=== PATIENT | female | born 1980 | race Caucasian/White ===

== ENCOUNTER 2018-06-26 04:50 | Inpatient (IN) | payer OTHER ==
[~2018-06-26] VITALS: Ht 154.9 cm; Wt 73.9 kg
[2018-06-26 05:24] VITALS: BMI 22.0
[2018-06-26 05:35] VITALS: BP 140/81; PULSE 66; RESP 18
[2018-06-26] MEDS ORDERED: ONDANSETRON 4 MG INJ IV PRN (06:00)
[2018-06-26 07:22] VITALS: BP 133/76; PULSE 68; RESP 19
[2018-06-26] MEDS: morphine 2 MG INJ IV PRN ×3 (07:27→22:37)
[2018-06-26] MEDS: DEXTROSE 5%-0.9% NACL 1,000 ML IV SCH (07:27)
[2018-06-26] MEDS: PANTOPRAZOLE 40 MG INJ IV SCH (07:27)
[2018-06-26] MEDS: CEFTRIAXONE 1 GM/50 ML (PMX) 50 ML IVPB SCH (07:31)
[2018-06-26] MEDS ORDERED: POTASSIUM CHLORIDE (SR) 20 MEQ TAB PO STA (09:21)
[2018-06-26 12:30] VITALS: BP 135/75; PULSE 74; RESP 18
[2018-06-26] MEDS: ACETAMINOPHEN 325 MG TAB PO PRN ×2 (12:59→20:50)
--- NOTE | 2018-06-26 13:01 | CONS ---
Assessment/Plan Assessment/Plan Hospital Course (Demo Recall) 1. Acute cholecystitis: Ultrasound: gallstones and sludge with thickening of the gallbladder measuring 5 mm: Urine negative -N.p.o. -Antibiotics -IV fluids 2. abdominal pain -Pain management 3. Elevated indirect bilirubin -Trend 4. Leukocytosis: -As above -Trend 5. Hypochromic anemia anemia: -Monitor and transfuse as needed 6. Mild hyponatremia and hypokalemia -Optimize electrolytes Thank you. Patient seen and examined in collaboration with Dr. Gerson Mayo. Consultation Date/Type/Reason Admit Date/Time Jun 26, 2018 at 04:50 Date of Consultation: Jun 26, 2018 Type of Consult Surgical Reason for Consultation Abdominal pain, cholecystitis Requesting Provider: MAYITO ASH MD Date/Time of Note DATE: 06/26/18 TIME: 12:46 Hx of Present Illness Crystal Galloway is a 38-year-old woman with past medical history of miscarriage and surgical history of who presents to outside hospital with complaints of abdominal pain. Abdominal pain is primarily in the right upper quadrant without radiation strong and persistent in nature. Associated symptoms include chills as well as nausea and vomiting, nonbloody emesis. She denies fevers, labored breathing, congested cough, shortness of breath, diarrhea, dysuria, change in bowel or bladder habits, change in skin or scleral color. Ultrasound of the abdomen performed in outside hospital shows gallstones and sludge with thickening of the gallbladder measuring 5 mm. laboratory findings significant for leukocytosis well as elevated indirect bilirubin and AST. General surgery was asked to evaluate. 12 point review of systems was performed and is negative except for stated in HPI. Past Medical History As above Medications Current Medications Pantoprazole (Protonix Iv) 40 mg DAILY@06 IV Last administered on 06/26/18at 07:27; Admin Dose 40 MG; Start 06/26/18 at 07:00 Acetaminophen (Tylenol Tab) 650 mg Q6H PRN PO MILD PAIN(1-3)OR ELEVATED TEMP; Start 06/26/18 at 06:00 Ondansetron HCl (Zofran Inj) 4 mg Q6H PRN IV NAUSEA AND/OR VOMITING; Start 06/26/18 at 06:00 Ceftriaxone Sodium 50 ml @ 100 mls/hr Q24H IVPB Last administered on 06/26/18at 07:31; Admin Dose 100 MLS/HR; Start 06/26/18 at 07:00 Morphine Sulfate (morphine) 2 mg Q4H PRN IV SEVERE PAIN LEVEL 7-10 Last administered on 06/26/18at 07:27; Admin Dose 2 MG; Start 06/26/18 at 06:00 Dextrose/Sodium Chloride 1,000 ml @ 75 mls/hr [id number] IV Last administered on 06/26/18at 07:27; Admin Dose 75 MLS/HR; Start 06/26/18 at 07:00 Allergies: Coded Allergies: No Known Allergy (Unverified , 06/26/18) Past Surgical History As above Family History Significant Family History: no pertinent family hx Social History Alcohol Use: none Smoking Status: Never smoker Exam/Review of Systems Exam Vitals Vital Signs Date Temp Pulse Resp B/P (MAP) Pulse Ox O2 O2 Flow FiO2 Time Delivery Rate 06/26/18 99.4 74 18 135/75 98 12:30 (95) 06/26/18 Room Air 05:35 Constitutional: alert, oriented Psych: anxiety Head: normocephalic, atraumatic Eyes: nl conjunctiva, EOMI, nl lids, nl sclera ENMT: nl external ears & nose, nl lips & teeth, mucosa pink and moist Neck: supple, non-tender; No jvd Respiratory: normal air movement; No labored breathing Cardiovascular: regular rate and rhythm, nl pulses; No edema Gastrointestinal: soft, distended (mod), tender, other (Positive Martell's by palpation) Genitourinary - Female: nl external genitalia Musculoskeletal: nl extremities to inspection, nl gait and stance Extremities: normal pulses Neurological: nl mental status, nl speech, nl strength Skin: nl turgor; No rash or lesions Lymph: nl lymph nodes Results Result Diagram: 06/26/1837 06/26/1837 Results 24hrs Laboratory Tests Test 06/26/18 07:37 White Blood Count 15.6 H Red Blood Count 4.26 Hemoglobin 11.2 L Hematocrit 35.3 L Mean Corpuscular Volume 82.9 Mean Corpuscular Hemoglobin 26.3 L Mean Corpuscular Hemoglobin Concent 31.7 L Red Cell Distribution Width 13.7 Platelet Count 390 Mean Platelet Volume 9.8 Immature Granulocytes % 0.500 H Neutrophils % 89.5 H Lymphocytes % 3.3 L Monocytes % 6.5 Eosinophils % 0.0 Basophils % 0.2 Nucleated Red Blood Cells % 0.0 Immature Granulocytes # 0.080 H Neutrophils # 14.0 H Lymphocytes # 0.5 L Monocytes # 1.0 H Eosinophils # 0.0 Basophils # 0.0 Nucleated Red Blood Cells # 0.0 Sodium Level 134 L Potassium Level 3.3 L Chloride Level 103 Carbon Dioxide Level 22 Anion Gap 9 Blood Urea Nitrogen 7 Creatinine 0.38 L Est Glomerular Filtrat Rate mL/min > 60 Glucose Level 140 Calcium Level 8.7 Total Bilirubin 1.3 Direct Bilirubin 0.00 Indirect Bilirubin 1.3 H Aspartate Amino Transf (AST/SGOT) 78 H Alanine Aminotransferase (ALT/SGPT) 62 Alkaline Phosphatase 89 Total Protein 7.5 Albumin 4.1 Globulin 3.40 H Albumin/Globulin Ratio 1.20 Medications Medication Current Medications Pantoprazole (Protonix Iv) 40 mg DAILY@06 IV Last administered on 06/26/18 07:27; Admin Dose 40 MG; Start 06/26/18 at 07:00 Acetaminophen (Tylenol Tab) 650 mg Q6H PRN PO MILD PAIN(1-3)OR ELEVATED TEMP; Start 06/26/18 at 06:00 Ondansetron HCl (Zofran Inj) 4 mg Q6H PRN IV NAUSEA AND/OR VOMITING; Start 06/26/18 at 06:00 Ceftriaxone Sodium 50 ml @ 100 mls/hr Q24H IVPB Last administered on 06/26/18 07:31; Admin Dose 100 MLS/HR; Start 06/26/18 at 07:00 Morphine Sulfate (morphine) 2 mg Q4H PRN IV SEVERE PAIN LEVEL 7-10 Last administered on 06/26/18 07:27; Admin Dose 2 MG; Start 06/26/18 at 06:00 Dextrose/Sodium Chloride 1,000 ml @ 75 mls/hr [id number] IV Last administered on 06/26/18 07:27; Admin Dose 75 MLS/HR; Start 06/26/18 at 07:00 TERENCE DOWNS NP Jun 26, 2018 13:01
--- NOTE | 2018-06-26 14:25 | QN ---
Documentation Comment seen and examined MAYITO ASH MD Jun 26, 2018 14:25
--- NOTE | 2018-06-26 14:37 | PREAC ---
Date/Time of Note Date/Time of Note DATE: 06/26/18 TIME: 14:36 Anesthesia Eval and Record Evaluation Time Pre-Procedure Interview DATE: 06/26/18 TIME: 14:36 Age 38 Sex female NPO: 8 hrs Preoperative diagnosis acute cholecystitis Planned procedure laparoscopic cholecystectomy Past Medical History Past Medical History: None Surgery & Anesthesia Issues No known issue Meds Anticoagulation: No Beta Darren within 24 hr: No Reason Beta Darren not given: Pt. not on B-Darren Current Medications Pantoprazole (Protonix Iv) 40 mg DAILY@06 IV Last administered on 06/26/18at 07:27; Admin Dose 40 MG; Start 06/26/18 at 07:00 Acetaminophen (Tylenol Tab) 650 mg Q6H PRN PO MILD PAIN(1-3)OR ELEVATED TEMP Last administered on 06/26/18 12:59; Admin Dose 650 MG; Start 06/26/18 at 06:00 Ondansetron HCl (Zofran Inj) 4 mg Q6H PRN IV NAUSEA AND/OR VOMITING; Start 06/26/18 at 06:00 Ceftriaxone Sodium 50 ml @ 100 mls/hr Q24H IVPB Last administered on 06/26/18 07:31; Admin Dose 100 MLS/HR; Start 06/26/18 at 07:00 Morphine Sulfate (morphine) 2 mg Q4H PRN IV SEVERE PAIN LEVEL 7-10 Last administered on 06/26/18 12:59; Admin Dose 2 MG; Start 06/26/18 at 06:00 Dextrose/Sodium Chloride 1,000 ml @ 75 mls/hr [id number] IV Last administered on 06/26/18 07:27; Admin Dose 75 MLS/HR; Start 06/26/18 at 07:00 Metronidazole 100 ml @ 100 mls/hr Q8 IVPB ; Start 06/26/18 at 14:30 Meds reviewed: Yes Allergies Coded Allergies: No Known Allergy (Unverified , 06/26/18) Allergies Reviewed: Yes Labs/Studies Labs Reviewed: Reviewed by anesthesiologist Result Diagram: 06/26/1873606/26/18736 Laboratory Tests 06/26/18 07:37 test: Negative Pre-procedure Exam Last vitals Vital Signs Date Temp Pulse Resp B/P (MAP) Pulse Ox O2 O2 Flow FiO2 Time Delivery Rate 06/26/18 99.9 12:59 06/26/18 74 18 135/75 98 12:30 (95) 06/26/18 Room Air 05:35 Airway: Adequate mouth opening, Adequate thyromental dist Mallampati: Mallampati II Teeth: Normal Lung: Normal Heart: Normal ASA Physical Status ASA physical status: 2 Emergency: None Planned Anesthetic General/MAC: ETT Nerve block: TAP (bilateral) Planned Pain Management Single shot nerve block, Parenteral pain med Pre-operative Attestations Prior to commencing anesthesia and surgery, the patient was re-evaluated, there was verification of: *The patient's identity *The results of appropriate recent lab work and preoperative vital signs *The above evaluation not changing prior to induction *Anesthetic plan, risk benefits, alternative and complications discussed with patient/family; questions answered; patient/family understands, accepts and wishes to proceed. CHLOE CASTANON MD Jun 26, 2018 14:37
[2018-06-26] MEDS: metroNIDAZOLE 500 MG/NS (PMX) 100 ML IVPB SCH ×2 (14:51→22:29)
[2018-06-26 15:10] VITALS: BP 131/68; PULSE 82; RESP 19
--- NOTE | 2018-06-26 17:34 | HP ---
DATE OF ADMISSION: 06/26/2018 REASON FOR ADMISSION: Abdominal pain. HISTORY OF PRESENTING ILLNESS: This is a 38-year-old female with past medical history of , presented to [facility] complaining of abdominal pain since yesterday. According to the pat eliot, she went to drop off her son at school. After that, she started noticing right upper quadrant pain. She was also having episodes of nausea, vomiting and chills. According to the patient, she horn s had 2 more episodes in 03/2018. She never sought any medical attention. She went to [facility] for further evaluation. There, white count was 12.4, hemoglobin 10.8. UA was negative. The patient had abdominal ultrasound that showed gallstone, liver measures 6.43 cm, spleen 9.7, CBD 3.7 m m, gallstone sludge, positive Martell sign, thickening of gallbladder measuring 5 mm, suspicious for a cute cholecystitis. The patient was given Zosyn, Zofran, NS, morphine and was transferred due to ins urance reasons. Currently, the patient is also having some pain in the right upper quadrant and also having some chills. PAST MEDICAL HISTORY: History of some allergies. SOCIAL HISTORY: Denies any history of smoking, alcohol or any drug use. MEDICATIONS TAKING AT HOME: Some allergy medicine. PAST SURGICAL HISTORY: . REVIEW OF SYSTEMS: The patient complained of right upper quadrant pain associated with episodes of n ausea, vomiting. Denies any diarrhea. The patient complained of fevers, chills. The patient is als o complaining of some burning sensation when she urinates. Denies any hematemesis, any melena, any b right red blood per rectum. Denies any chest pain, any shortness of breath, any lower extremity steven a. PHYSICAL EXAMINATION: VITAL SIGNS: Currently temperature 99.9, heart rate 74, respirations 18, blood pressure 135/75. GENERAL: The patient is awake, alert, oriented. HEENT: Pupils are equal, round, reactive to light. No scleral icterus. NECK: Supple. No JVD. HEART: Regular rate and rhythm. LUNGS: Clear to auscultate bilaterally. ABDOMEN: Severe tenderness present in the right upper quadrant. Martell sign present. Positive syd l sounds. No peritoneal signs. EXTREMITIES: No clubbing, cyanosis or edema. LABORATORY DATA: Potassium 3.4. Indirect bilirubin 1.3, AST 78, ALT 62. White count 15.6, hemoglob in 11.2, platelet count 390. ASSESSMENT AND PLAN: This is a 38-year-old female who presented with: 1. Right upper quadrant pain, nausea, vomiting, fevers and chills. Abdominal ultrasound is consiste nt with gallstones and acute cholecystitis. 2. Fever secondary to that. 3. Hyperbilirubinemia and elevated AST secondary to #1. 4. Leukocytosis secondary to #1. 5. Mild . PLAN: At this period of time, the patient is admitted to med/surg unit. The patient is kept n.p.o., started on IV antibiotics. Potassium will be repleted. Surgery consultation has been obtained with Dr. Mayo. The patient will need cholecystectomy. Rest of the treatment will depend on the patie nt's hospitalization course. Dictated By: MAYITO ASH RB/FILOMENA Conf#: [id number] DID#: [id number] CC: HEATHER MAYO MD; GILBERTO MONTGOMERY MD;*EndCC*
[2018-06-26 19:30] VITALS: BP 145/77; PULSE 138; RESP 20
[2018-06-26 21:47] VITALS: BP 145/77; PULSE 138; RESP 20
[2018-06-27] VITALS (15 sets, daily range): BP systolic 106–145; BP diastolic 55–84; PULSE 89–123; RESP 18–26; Ht 154.9 cm; Wt 73.9 kg
[2018-06-27] MEDS: DEXTROSE 5%-0.9% NACL 1,000 ML IV SCH (01:23)
[2018-06-27] MEDS: ACETAMINOPHEN 325 MG TAB PO PRN ×2 (05:08→12:22)
[2018-06-27] MEDS: PANTOPRAZOLE 40 MG INJ IV SCH (05:08)
[2018-06-27] MEDS: metroNIDAZOLE 500 MG/NS (PMX) 100 ML IVPB SCH ×3 (05:38→22:00)
[2018-06-27] MEDS: CEFTRIAXONE 1 GM/50 ML (PMX) 50 ML IVPB SCH (06:53)
--- NOTE | 2018-06-27 08:52 | RADRPT ---
Vent Rate: 102 bpm RR Interval: 0 msec AL Interval: 130 msec QRS Duration: 70 msec QT Interval: 334 msec QTC Interval: 435 msec P-R-T [place]: -1 - 54 - 45 degrees Sinus tachycardia Otherwise normal ECG Electronically Signed By: Elayne Drummond
[2018-06-27] MEDS: D5-NS + KCL 20 MEQ 1,000 ML IV SCH (13:49)
[2018-06-27] MEDS: PIPER-TAZO 3.375 GM IV (PMX) 100 ML IVPB SCH ×3 (15:08→20:16)
--- NOTE | 2018-06-27 18:26 | PN ---
Date/Time of Note Date/Time of Note DATE: 06/27/18 TIME: 18:25 Assessment/Plan VTE Prophylaxis Risk score (from [facility] [place])>0 risk: 1 SCD applied (from [facility] [place]): No SCD contraindicated: low risk/ambulating Pharmacological prophylaxis: NA/contraindicated Pharm contraindication: surgical contra Lines/Catheters IV Catheter Type (from [facility]): Peripheral IV Assessment/Plan Hospital Course 1. Right upper quadrant pain, nausea, vomiting, fevers and chills. Abdominal ultrasound is consistent with gallstones and acute cholecystitis. 2. Fever secondary to that. 3. Hyperbilirubinemia and elevated AST secondary to #1. 4. Leukocytosis secondary to #1, increased. 5. Mild normocytic hypochromic anemia. 6. Overweight Assessment/Plan - med/surg unit. -check weigth or height -The patient is kept n.p.o., -c/w IV antibiotics Flagyl, Zosyn. - Potassium supplement prn. -Surgery consultation obtained with Dr. Mayo. The patient will need cholecystectomy. -DVT prophylaxis -GI prophylaxis. Result Diagram: 06/27/18 0438 06/27/18 0438 Results 24hrs Laboratory Tests Test 06/27/18 04:38 White Blood Count 17.2 H Red Blood Count 3.98 L Hemoglobin 10.6 L Hematocrit 32.9 L Mean Corpuscular Volume 82.7 Mean Corpuscular Hemoglobin 26.6 L Mean Corpuscular Hemoglobin Concent 32.2 Red Cell Distribution Width 14.4 Platelet Count 312 Mean Platelet Volume 9.9 Immature Granulocytes % 0.600 H Neutrophils % 93.8 H Lymphocytes % 1.8 L Monocytes % 3.7 Eosinophils % 0.0 Basophils % 0.1 Nucleated Red Blood Cells % 0.0 Immature Granulocytes # 0.100 H Neutrophils # 16.2 H Lymphocytes # 0.3 L Monocytes # 0.6 Eosinophils # 0.0 Basophils # 0.0 Nucleated Red Blood Cells # 0.0 Sodium Level 137 Potassium Level 3.2 L Chloride Level 102 Carbon Dioxide Level 26 Anion Gap 9 Blood Urea Nitrogen 11 Creatinine 0.52 Est Glomerular Filtrat Rate mL/min > 60 Glucose Level 137 Calcium Level 8.6 Phosphorus Level 2.0 L Magnesium Level 1.8 Total Bilirubin 1.3 Direct Bilirubin 0.00 Indirect Bilirubin 1.3 H Aspartate Amino Transf (AST/SGOT) 77 H Alanine Aminotransferase (ALT/SGPT) 74 H Alkaline Phosphatase 93 Total Protein 6.6 Albumin 3.6 Globulin 3.00 Albumin/Globulin Ratio 1.20 Subjective 24 Hr Interval Summary Gastrointestinal: pain Exam/Review of Systems Exam Vitals Vital Signs Date Temp Pulse Resp B/P (MAP) Pulse Ox O2 O2 Flow FiO2 Time Delivery Rate 06/27/18 99.3 100 18 106/61 99 Room Air 15:42 (76) Intake and Output 06/26/18 06/26/18 06/27/18 1515:00 23:00 07:00 IntakeIntake Total 125 ml 850 ml 913 ml OutputOutput Total 300 ml BalanceBalance -175 ml 850 ml 913 ml Constitutional: alert, oriented Respiratory: clear to auscultation Cardiovascular: regular rate and rhythm Gastrointestinal: soft, rebound or guarding (ruq) Results Results 24hrs Laboratory Tests Test 06/27/18 04:38 White Blood Count 17.2 H Red Blood Count 3.98 L Hemoglobin 10.6 L Hematocrit 32.9 L Mean Corpuscular Volume 82.7 Mean Corpuscular Hemoglobin 26.6 L Mean Corpuscular Hemoglobin Concent 32.2 Red Cell Distribution Width 14.4 Platelet Count 312 Mean Platelet Volume 9.9 Immature Granulocytes % 0.600 H Neutrophils % 93.8 H Lymphocytes % 1.8 L Monocytes % 3.7 Eosinophils % 0.0 Basophils % 0.1 Nucleated Red Blood Cells % 0.0 Immature Granulocytes # 0.100 H Neutrophils # 16.2 H Lymphocytes # 0.3 L Monocytes # 0.6 Eosinophils # 0.0 Basophils # 0.0 Nucleated Red Blood Cells # 0.0 Sodium Level 137 Potassium Level 3.2 L Chloride Level 102 Carbon Dioxide Level 26 Anion Gap 9 Blood Urea Nitrogen 11 Creatinine 0.52 Est Glomerular Filtrat Rate mL/min > 60 Glucose Level 137 Calcium Level 8.6 Phosphorus Level 2.0 L Magnesium Level 1.8 Total Bilirubin 1.3 Direct Bilirubin 0.00 Indirect Bilirubin 1.3 H Aspartate Amino Transf (AST/SGOT) 77 H Alanine Aminotransferase (ALT/SGPT) 74 H Alkaline Phosphatase 93 Total Protein 6.6 Albumin 3.6 Globulin 3.00 Albumin/Globulin Ratio 1.20 Medications Medication Current Medications Pantoprazole (Protonix Iv) 40 mg DAILY@06 IV Last administered on 06/27/18at 05:08; Admin Dose 40 MG; Start 06/26/18 at 07:00 Acetaminophen (Tylenol Tab) 650 mg Q6H PRN PO MILD PAIN(1-3)OR ELEVATED TEMP Last administered on 06/27/18 12:22; Admin Dose 650 MG; Start 06/26/18 at 06:00 Ondansetron HCl (Zofran Inj) 4 mg Q6H PRN IV NAUSEA AND/OR VOMITING; Start 06/26/18 at 06:00 Morphine Sulfate (morphine) 2 mg Q4H PRN IV SEVERE PAIN LEVEL 7-10 Last administered on 06/26/18 22:37; Admin Dose 2 MG; Start 06/26/18 at 06:00 Metronidazole 100 ml @ 100 mls/hr Q8 IVPB Last administered on 06/27/18 13:49; Admin Dose 100 MLS/HR; Start 06/26/18 at 14:30 Potassium Chloride/Dextrose/ Sod Cl 1,000 ml @ 75 mls/hr [id number] IV Last administered on 06/27/18 13:49; Admin Dose 75 MLS/HR; Start 06/27/18 at 14:00 Piperacillin Sod/ Tazobactam Sod 100 ml @ 200 mls/hr Q6 IVPB Last administered on 06/27/18 15:08; Admin Dose 200 MLS/HR; Start 06/27/18 at 14:30 ANIL WELLS Jun 27, 2018 18:26
--- NOTE | 2018-06-27 20:28 | PREAC ---
Date/Time of Note Date/Time of Note DATE: 06/27/18 TIME: 20:27 Anesthesia Eval and Record Evaluation Time Pre-Procedure Interview DATE: 06/27/18 TIME: 20:27 Age 38 Sex female NPO: 8 hrs Preoperative diagnosis gallstones Planned procedure Lap [place] Past Medical History Past Medical History: Includes GI: Obesity Surgery & Anesthesia Issues No known issue Meds Anticoagulation: No Beta Darren within 24 hr: No Reason Beta Darren not given: Pt. not on B-Darren Current Medications Pantoprazole (Protonix Iv) 40 mg DAILY@06 IV Last administered on 06/27/18at 05:08; Admin Dose 40 MG; Start 06/26/18 at 07:00 Acetaminophen (Tylenol Tab) 650 mg Q6H PRN PO MILD PAIN(1-3)OR ELEVATED TEMP Last administered on 06/27/18at 12:22; Admin Dose 650 MG; Start 06/26/18 at 06:00 Ondansetron HCl (Zofran Inj) 4 mg Q6H PRN IV NAUSEA AND/OR VOMITING; Start 06/26/18 at 06:00 Morphine Sulfate (morphine) 2 mg Q4H PRN IV SEVERE PAIN LEVEL 7-10 Last administered on 06/26/18at 22:37; Admin Dose 2 MG; Start 06/26/18 at 06:00 Metronidazole 100 ml @ 100 mls/hr Q8 IVPB Last administered on 06/27/18at 13:49; Admin Dose 100 MLS/HR; Start 06/26/18 at 14:30 Potassium Chloride/Dextrose/ Sod Cl 1,000 ml @ 75 mls/hr [id number] IV Last administered on 06/27/18at 13:49; Admin Dose 75 MLS/HR; Start 06/27/18 at 14:00 Piperacillin Sod/ Tazobactam Sod 100 ml @ 200 mls/hr Q6 IVPB Last administered on 06/27/18at 15:08; Admin Dose 200 MLS/HR; Start 06/27/18 at 14:30 Meds reviewed: Yes Allergies Coded Allergies: No Known Allergy (Unverified , 06/26/18) Allergies Reviewed: Yes Labs/Studies Labs Reviewed: Reviewed by anesthesiologist Result Diagram: 06/27/18 0438 06/27/18 0438 Laboratory Tests 06/27/18 04:38 test: Negative Studies: ECG Pre-procedure Exam Last vitals Vital Signs Date Temp Pulse Resp B/P (MAP) Pulse Ox O2 O2 Flow FiO2 Time Delivery Rate 06/27/18 98.2 110 20 113/65 95 19:50 (81) 06/27/18 Room Air 15:42 Airway: Adequate mouth opening, Adequate thyromental dist Mallampati: Mallampati II Teeth: Normal Lung: Normal Heart: Normal ASA Physical Status ASA physical status: 2 Emergency: None Planned Anesthetic General/MAC: ETT Nerve block: TAP (bilateral) Pre-operative Attestations Prior to commencing anesthesia and surgery, the patient was re-evaluated, there was verification of: *The patient's identity *The results of appropriate recent lab work and preoperative vital signs *The above evaluation not changing prior to induction *Anesthetic plan, risk benefits, alternative and complications discussed with patient/family; questions answered; patient/family understands, accepts and wishes to proceed. REMINGTON WILLIAMSON Jun 27, 2018 20:28
[2018-06-27] MEDS ORDERED: HYDROmorphONE 1 MG/5 ML IV SYRINGE IV PRN ×3 (20:30)
[2018-06-27] MEDS ORDERED: MEPERIDINE 25 MG INJ IV PRN (20:30)
[2018-06-27] MEDS ORDERED: ALBUTEROL 0.083% (NEB) 2.5 MG/3 ML AMP HHN PRN (20:30)
[2018-06-27] MEDS ORDERED: METOCLOPRAMIDE 10 MG INJ IV PRN (20:30)
[2018-06-27] MEDS ORDERED: ONDANSETRON 4 MG INJ IV PRN (20:30)
[2018-06-27] MEDS ORDERED: DIPHENHYDRAMINE 50 MG INJ IV PRN (20:30)
[2018-06-27] MEDS ORDERED: FENTAnyl 50 MCG/ML VIAL IV PRN ×3 (20:30)
[2018-06-27] MEDS ORDERED: BUPIVACAINE 0.25%/EPI (SDV) 30 ML INJ ONE (20:41)
[2018-06-27] MEDS ORDERED: LIDOCAINE 1% (MPF) 30 ML INJ ONE (20:41)
--- NOTE | 2018-06-27 20:49 | PN ---
Date/Time of Note Date/Time of Note DATE: 06/27/18 TIME: 20:45 Assessment/Plan Lines/Catheters IV Catheter Type (from [facility]): Peripheral IV Assessment/Plan Chief Complaint/Hosp Course 1. Acute cholecystitis: Ultrasound: gallstones and sludge with thickening of the gallbladder measuring 5 mm: Urine negative. Fevers, worsening leukocytosis, tachycardia > zosyn added today -OR -N.p.o. -Antibiotics -IV fluids 2. Abdominal pain -Pain management 3. Abnormal LFTs -Trend 4. Leukocytosis: -As above -Trend 5. Hypochromic anemia anemia: -Monitor and transfuse as needed 6. Mild hyponatremia and hypokalemia -Optimize electrolytes 7. BMI 31 -diet/exercise optimization Thank you, Subjective 24 Hr Interval Summary Fevers, tachycardia, worsening leukocytosis. Zosyn added today. Feels better overall. No cp/sob. No cough. No sz. No bleeding. No rash, Labs noted. Exam/Review of Systems Vital Signs Vitals Vital Signs Date Temp Pulse Resp B/P (MAP) Pulse Ox O2 O2 Flow FiO2 Time Delivery Rate 06/27/18 98.2 110 20 113/65 95 19:50 (81) 06/27/18 Room Air 15:42 Intake and Output 06/26/18 06/26/18 06/27/18 1515:00 23:00 07:00 IntakeIntake Total 125 ml 850 ml 913 ml OutputOutput Total 300 ml BalanceBalance -175 ml 850 ml 913 ml Exam Free Text/Dictation Constitutional: alert, oriented Psych: anxiety Head: normocephalic, atraumatic Eyes: nl conjunctiva, EOMI, nl lids, nl sclera ENMT: nl external ears & nose, nl lips & teeth, mucosa pink and moist Neck: supple, non-tender; No jvd Respiratory: normal air movement; No labored breathing Cardiovascular: regular rate and rhythm, nl pulses; No edema Gastrointestinal: soft, distended (mod), tender, other (Positive Martell's by palpation) Genitourinary - Female: nl external genitalia Musculoskeletal: nl extremities to inspection, nl gait and stance Extremities: normal pulses Neurological: nl mental status, nl speech, nl strength Skin: nl turgor; No rash or lesions Lymph: nl lymph nodes Results Result Diagram: 06/27/18 0438 06/27/18 0438 HEATHER DIAZ MD Jun 27, 2018 20:49
--- NOTE | 2018-06-27 20:52 | OPR ---
Date/Time of Note Date/Time of Note DATE: 06/27/18 TIME: 20:52 Operative Report Free Text/Dictation Preoperative Diagnosis: Acute cholecystitis BMI 31 Postoperative Diagnosis: Acute cholecystitis with significant inflammation Difficult operation, modifier 22 Abnormal liver color BMI 31 Umbilical/ventral hernia Operation(s) Performed: 1. 3 port laparoscopic cholecystectomy 2. Laparoscopic liver wedge resection biopsy 3. Indigocarmine green fluorescence cholangiography 4. Difficult operation, modifier 22 5. Local anesthetic injection, [address] Surgeon: Heather Diaz MD Chief Gauger: None Anesthesia: general, local, & regional Anesthesiologist: Alvaro Silva MD Estimated Blood Loss: 300 ml's Specimens: Gallbladder Liver Tubes/Drains: 15F Omar Complications: None Pt Condition Post Procedure: stable Disposition: PACU Indications: 38-year-old female with gallstones, cholecystitis, and abdominal pain here for cholecystectomy. Risks include but are not limited to bleeding, infection, abscess, seroma, damage to intestines, damage to the liver, damage to biliary tree, hernia formation, chronic pain, biloma, need for reoperations or further surgeries, PA, stroke, PE, DVT, pneumonia, organ failures, or even . Procedure Description: Patient was brought and placed supine on the operating table SCDs were placed, preoperative antibiotics were administered, all pressure points were well- padded, and after induction of anesthesia patient was prepped and draped in usual sterile fashion and timeout was performed. Incision was made in the infraumbilical region, and through small ventral hernia abdomen is entered bluntly, 5 mm port is applied, abdomen is insufflated to 15mmHg. Laparoscopy was performed with a 5 mm 30 scope. No injuries were identified. The liver looks somewhat abnormal color. The gallbladder is distended and thickened with significant evidence of inflammation and infection. 12 mm port is placed in subxiphoid under direct visualization followed by another 5 mm port in the right upper quadrant. All port sites were injected with quarter percent Marcaine with epi and 1% lidocaine prior to any incisions. Patient was placed in reverse Trendelenburg and right side up on gallbladder was retracted superolaterally. The gallbladder was large and distended. Gallbladder had to be drained to be able to manipulated. Fluid was clear indicating hydrops. There was significant inflammation at the base and difficult to identify the structures. Top-down approach was performed dissecting the gallbladder off of the liver and there was significant oozing fro m all raw structures. I was able to finally identify the cystic artery and cystic duct. The duct tapered into the gallbladder. Full critical angle view was identified. Indigocarmine green fluorescence cholangiography was performed identifying the liver lighting up with the common bile duct however not the cystic duct. At this point cystic duct and artery were clipped twice proximally and once distally and transected. Endoloop was placed to further secure the duct. Hemostasis was obtained. Gallbladder was placed in an Endo Catch bag and removed through the subxiphoid port site which had to be enlarged to allow extraction of the large stone on the gallbladder. There was complete hemostasis. Due to the abnormality of the liver decision was made to perform liver wedge resection which was done with electrocautery and scissor with complete hemostasis right after. The specimen was sent to pathology for further evaluation. 15F omar drain was placed through lateral incision to drain the liver and gallbladder sites. 12 mm made port site fascia was closed with Endo Close of an 0 Vicryl in a [id number] manner. Umbilical hernia was left alone since no consent and small. Ports and CO2 were removed under direct visualization. Next complete hemostasis. Wounds were thoroughly irrigated skin was closed with 4-0 Monocryl in subcuticular fashion. Dermabond was applied. Patient was extubated and transferred to recovery room in stable condition and all counts were correct and the end of the operation 2. HEATHER DIAZ MD Jun 27, 2018 20:52
[2018-06-27] MEDS ORDERED: FENTAnyl 50 MCG/ML VIAL ONE (21:00)
[2018-06-27] MEDS ORDERED: ROPIVACAINE 0.5 % 30 ML VIAL ONE (21:00)
[2018-06-27] MEDS ORDERED: LIDOCAINE 100 MG SYRINGE ONE (21:24)
[2018-06-27] MEDS ORDERED: SUGAMMADEX SODIUM 200 MG/2 ML VIAL IV ONE (21:24)
[2018-06-27] MEDS ORDERED: PROPOFOL 20 ML ONE (21:24)
[2018-06-27] MEDS ORDERED: ROCURONIUM 50 MG INJ ONE (21:24)
[2018-06-27] MEDS ORDERED: SUCCINYLCHOLINE CHLORIDE 100 MG/5 ML SYG IV ONE (21:24)
[2018-06-28] VITALS (10 sets, daily range): BP systolic 117–129; BP diastolic 63–77; PULSE 84–105; RESP 17–20
[2018-06-28] MEDS: metroNIDAZOLE 500 MG/NS (PMX) 100 ML IVPB SCH ×4 (00:12→21:14)
[2018-06-28] MEDS: PIPER-TAZO 3.375 GM IV (PMX) 100 ML IVPB SCH ×4 (01:22→18:26)
[2018-06-28] MEDS: PANTOPRAZOLE 40 MG INJ IV SCH (05:58)
[2018-06-28] MEDS: D5-NS + KCL 20 MEQ 1,000 ML IV SCH ×2 (05:58→16:40)
[2018-06-28] MEDS: morphine 2 MG INJ IV PRN ×3 (06:03→16:02)
[2018-06-28] MEDS: POTASSIUM CHLORIDE 100 ML IVPB SCH ×2 (11:43→15:59)
--- NOTE | 2018-06-28 15:22 | PN ---
Date/Time of Note Date/Time of Note DATE: 06/28/18 TIME: 15:18 Assessment/Plan VTE Prophylaxis Risk score (from Ns)>0 risk: 2 SCD applied (from [facility] [place] Yes Pharmacological prophylaxis: NA/contraindicated Pharm contraindication: surgical contra Lines/Catheters IV C[facility]ter Type (from [facility]): Saline Lock Urinary Cath still in place: No Assessment/Plan Hospital Course 1. Acute cholecystitis. S/p lap curt by dr Mayo on 06/27/2018. POD 1. Per operative report umbilical/ventral hernia found. 2. Fever secondary to that, spike 99. 3. Hyperbilirubinemia, resolved. Elevated AST and ALT secondary to #1. 4. Leukocytosis secondary to #1, resolved 5. Mild normocytic hypochromic anemia. 6. Obesity 7. Hypokalemia, K repleted Assessment/Plan - med/surg unit. -full diet tolerated well -c/w IV antibiotics Zosyn. - Potassium supplement prn. -Surgery consultation obtained with Dr. Mayo. -DVT prophylaxis SCD bilaterally -IS q 1 h -pain control -GI prophylaxis Protonix IV. Result Diagram: 06/28/184 06/28/184 Results 24hrs Laboratory Tests Test 06/28/18 04:44 White Blood Count 10.7 # Red Blood Count 3.46 L Hemoglobin 9.2 L Hematocrit 29.2 L Mean Corpuscular Volume 84.4 Mean Corpuscular Hemoglobin 26.6 L Mean Corpuscular Hemoglobin Concent 31.5 L Red Cell Distribution Width 14.7 H Platelet Count 242 # Mean Platelet Volume 10.0 Immature Granulocytes % 0.400 Neutrophils % Segmented Neutrophils % (Manual) 88 H Band Neutrophils % (Manual) 7 H Lymphocytes % Lymphocytes % (Manual) 1 L Monocytes % Monocytes % (Manual) 4 Eosinophils % Basophils % Nucleated Red Blood Cells % 0.0 Immature Granulocytes # 0.040 H Neutrophils # Neutrophils # (Manual) 9.5 H Band Neutrophils # 0.7 H Lymphocytes (Manual) 0.1 L Lymphocytes # Monocytes # Monocytes # (Manual) 0.4 Eosinophils # Basophils # Nucleated Red Blood Cells # Platelet Estimate NORMAL Giant Platelets 2 H Polychromasia 3+ Poikilocytosis 1+ Anisocytosis 1+ Microcytosis 1+ Sodium Level 140 Potassium Level 3.2 L Chloride Level 110 Carbon Dioxide Level 24 Anion Gap 6 Blood Urea Nitrogen 8 Creatinine 0.48 Est Glomerular Filtrat Rate mL/min > 60 Glucose Level 141 Calcium Level 8.2 L Total Bilirubin 1.1 Direct Bilirubin 0.00 Indirect Bilirubin 1.1 Aspartate Amino Transf (AST/SGOT) 86 H Alanine Aminotransferase (ALT/SGPT) 72 H Alkaline Phosphatase 120 Total Protein 5.9 L Albumin 3.1 L Globulin 2.80 Albumin/Globulin Ratio 1.10 Amylase Level 60 Subjective 24 Hr Interval Summary Gastrointestinal: no complaints, pain, blood, constipation, decreased appetite, diarrhea, flatus, nausea, passing stool, vomiting, other Exam/Review of Systems Exam Vitals Vital Signs Date Temp Pulse Resp B/P (MAP) Pulse Ox O2 O2 Flow FiO2 Time Delivery Rate 06/28/18 99.6 92 17 126/76 95 14:54 (93) 06/28/18 Room Air 06:30 06/27/18 2.0 23:16 Intake and Output 06/27/18 06/27/18 06/28/18 1515:00 23:00 07:00 IntakeIntake Total 600 ml 1625 ml 1235 ml OutputOutput Total 10 ml 750 ml BalanceBalance 600 ml 1615 ml 485 ml Constitutional: alert, oriented Head: normocephalic Respiratory: clear to auscultation Cardiovascular: regular rate and rhythm Gastrointestinal: soft, nl liver, spleen, non-tender, ascites, bowel sounds, distended, firm, hepatomegaly, mass, rebound or guarding, splenomegaly, surgical scars, tender, other (SOY bulb) Extremities: normal pulses Results Results 24hrs Laboratory Tests Test 06/28/18 04:44 White Blood Count 10.7 # Red Blood Count 3.46 L Hemoglobin 9.2 L Hematocrit 29.2 L Mean Corpuscular Volume 84.4 Mean Corpuscular Hemoglobin 26.6 L Mean Corpuscular Hemoglobin Concent 31.5 L Red Cell Distribution Width 14.7 H Platelet Count 242 # Mean Platelet Volume 10.0 Immature Granulocytes % 0.400 Neutrophils % Segmented Neutrophils % (Manual) 88 H Band Neutrophils % (Manual) 7 H Lymphocytes % Lymphocytes % (Manual) 1 L Monocytes % Monocytes % (Manual) 4 Eosinophils % Basophils % Nucleated Red Blood Cells % 0.0 Immature Granulocytes # 0.040 H Neutrophils # Neutrophils # (Manual) 9.5 H Band Neutrophils # 0.7 H Lymphocytes (Manual) 0.1 L Lymphocytes # Monocytes # Monocytes # (Manual) 0.4 Eosinophils # Basophils # Nucleated Red Blood Cells # Platelet Estimate NORMAL Giant Platelets 2 H Polychromasia 3+ Poikilocytosis 1+ Anisocytosis 1+ Microcytosis 1+ Sodium Level 140 Potassium Level 3.2 L Chloride Level 110 Carbon Dioxide Level 24 Anion Gap 6 Blood Urea Nitrogen 8 Creatinine 0.48 Est Glomerular Filtrat Rate mL/min > 60 Glucose Level 141 Calcium Level 8.2 L Total Bilirubin 1.1 Direct Bilirubin 0.00 Indirect Bilirubin 1.1 Aspartate Amino Transf (AST/SGOT) 86 H Alanine Aminotransferase (ALT/SGPT) 72 H Alkaline Phosphatase 120 Total Protein 5.9 L Albumin 3.1 L Globulin 2.80 Albumin/Globulin Ratio 1.10 Amylase Level 60 Medications Medication Current Medications Pantoprazole (Protonix Iv) 40 mg DAILY@06 IV Last administered on 06/28/18 05:58; Admin Dose 40 MG; Start 06/26/18 at 07:00 Acetaminophen (Tylenol Tab) 650 mg Q6H PRN PO MILD PAIN(1-3)OR ELEVATED TEMP Last administered on 06/27/18 12:22; Admin Dose 650 MG; Start 06/26/18 at 06:00 Ondansetron HCl (Zofran Inj) 4 mg Q6H PRN IV NAUSEA AND/OR VOMITING Last administered on 06/27/18 23:06; Admin Dose 4 MG; Start 06/26/18 at 06:00 Morphine Sulfate (morphine) 2 mg Q4H PRN IV SEVERE PAIN LEVEL 7-10 Last administered on 06/28/18 11:46; Admin Dose 2 MG; Start 06/26/18 at 06:00 Metronidazole 100 ml @ 100 mls/hr Q8 IVPB Last administered on 06/28/18 14:21; Admin Dose 100 MLS/HR; Start 06/26/18 at 14:30 Potassium Chloride/Dextrose/ Sod Cl 1,000 ml @ 75 mls/hr [id number] IV Last administered on 06/28/18 05:58; Admin Dose 75 MLS/HR; Start 06/27/18 at 14:00 Piperacillin Sod/ Tazobactam Sod 100 ml @ 200 mls/hr Q6 IVPB Last administered on 06/28/18 13:49; Admin Dose 200 MLS/HR; Start 06/27/18 at 14:30 ANIL WELLS Jun 28, 2018 15:22
--- NOTE | 2018-06-28 21:30 | PN ---
Date/Time of Note Date/Time of Note DATE: 06/28/18 TIME: 21:26 Assessment/Plan Lines/Catheters IV Catheter Type (from [facility]): Saline Lock [facility] in Place (from [facility]): No Assessment/Plan Chief Complaint/Hosp Course 1. Acute cholecystitis: Ultrasound: gallstones and sludge with thickening of the gallbladder measuring 5 mm: Urine negative. s/p 3 port lapa roscopic cholecystectomy, liver wedge resection, 06/27. Improved overall -Diet as tolerated -Antibiotics -IV fluids -Drain care 2. Abdominal pain improving -Pain management 3. Abnormal LFTs -Trend 4. Leukocytosis improving -As above -Trend 5. Hypochromic anemia anemia: -Monitor and transfuse as needed 6. BMI 31 -diet/exercise optimization Thank you, Subjective 24 Hr Interval Summary s/p laparoscopic cholecystectomy and liver biopsy 06/27. Fevers, tachycardia, leukocytosis all improved. Feels better overall. No cp/sob. No cough. No sz. No bleeding. No rash, Labs noted. Exam/Review of Systems Vital Signs Vitals Vital Signs Date Temp Pulse Resp B/P (MAP) Pulse Ox O2 O2 Flow FiO2 Time Delivery Rate 06/28/18 98.6 91 18 129/77 93 20:29 (94) 06/28/18 Room Air 06:30 06/27/18 2.0 23:16 Intake and Output 06/27/18 06/27/18 06/28/18 1515:00 23:00 07:00 IntakeIntake Total 600 ml 1625 ml 1235 ml OutputOutput Total 10 ml 750 ml BalanceBalance 600 ml 1615 ml 485 ml Exam Free Text/Dictation Constitutional: alert, oriented Psych: anxiety Head: normocephalic, atraumatic Eyes: nl conjunctiva, EOMI, nl lids, nl sclera ENMT: nl external ears & nose, nl lips & teeth, mucosa pink and moist Neck: supple, non-tender; No jvd Respiratory: normal air movement; No labored breathing Cardiovascular: regular rate and rhythm, nl pulses; No edema Gastrointestinal: soft, distended (mod), tender, other (Positive Martell's by palpation) Genitourinary - Female: nl external genitalia Musculoskeletal: nl extremities to inspection, nl gait and stance Extremities: normal pulses Neurological: nl mental status, nl speech, nl strength Skin: nl turgor; No rash or lesions Lymph: nl lymph nodes Results Result Diagram: 06/28/18 0444 06/28/18 0444 HEATHER DIAZ MD Jun 28, 2018 21:30
[2018-06-29] MEDS: PIPER-TAZO 3.375 GM IV (PMX) 100 ML IVPB SCH ×5 (00:26→23:46)
[2018-06-29 01:43] VITALS: BP 116/73; PULSE 90; RESP 17
[2018-06-29] MEDS: ACETAMINOPHEN 325 MG TAB PO PRN (01:53)
[2018-06-29] MEDS: PANTOPRAZOLE 40 MG INJ IV SCH (05:39)
[2018-06-29] MEDS: D5-NS + KCL 20 MEQ 1,000 ML IV SCH ×3 (05:41→22:21)
[2018-06-29] MEDS: metroNIDAZOLE 500 MG/NS (PMX) 100 ML IVPB SCH ×3 (06:20→22:21)
[2018-06-29 07:39] VITALS: BP 132/78; PULSE 98; RESP 18
[2018-06-29] MEDS: POTASSIUM CHLORIDE 100 ML IVPB SCH ×2 (07:56→10:27)
--- NOTE | 2018-06-29 08:13 | PAC ---
Date/Time of Note Date/Time of Note DATE: 06/29/18 TIME: 08:13 Post-Anesthesia Notes Post-Anesthesia Note Last documented vital signs Vital Signs Date Temp Pulse Resp B/P (MAP) Pulse Ox O2 O2 Flow FiO2 Time Delivery Rate 06/29/18 98.7 98 18 132/78 96 07:39 (96) 06/28/18 Room Air 06:30 06/27/18 2.0 23:16 Activity: WNL Respiratory function: WNL Cardiovascular function: WNL Mental status: Baseline Pain reasonably controlled: Yes Hydration appropriate: Yes Nausea/Vomiting absent: Yes REMINGTON WILLIAMSON Jun 29, 2018 08:13
--- NOTE | 2018-06-29 11:48 | PN ---
Date/Time of Note Date/Time of Note DATE: 06/29/18 TIME: 11:46 Assessment/Plan VTE Prophylaxis Risk score (from Ns)>0 risk: 4 SCD applied [place] [facility] [place] Pharmacological prophylaxis: NA/contraindicated Pharm contraindication: low risk/ambulating Lines/Catheters IV C[facility] Type ([facility] Saline Lock Urinary Cath still in place: No Assessment/Plan Hospital Course 1. Acute cholecystitis. S/p lap curt by dr Mayo on 06/27/2018. POD 2. Per operative report umbilical/ventral hernia found. 2. Fever secondary to that, spike 99. 3. Hyperbilirubinemia, resolved. Elevated AST and ALT secondary to #1. Improved 4. Leukocytosis secondary to #1, resolved 5. Mild normocytic hypochromic anemia. 6. Obesity 7. Hypokalemia Assessment/Plan -Still having low-grade fevers continue with IV antibiotics with Zosyn -Aggressive potassium replacement with 80 mEq IV potassium recheck potassium at 4 PM -Ambulate. -Advance diet per surgery -Hemoglobin dropped continue to monitor -pain control -GI prophylaxis Protonix IV. Result Diagram: 06/29/18 0438 06/29/18 0438 Results 24hrs Laboratory Tests Test 06/29/18 04:38 White Blood Count 8.4 # Red Blood Count 3.38 L Hemoglobin 8.9 L Hematocrit 27.6 L Mean Corpuscular Volume 81.7 L Mean Corpuscular Hemoglobin 26.3 L Mean Corpuscular Hemoglobin Concent 32.2 Red Cell Distribution Width 14.6 H Platelet Count 237 Mean Platelet Volume 10.2 Immature Granulocytes % 0.700 H Neutrophils % 86.1 H Lymphocytes % 7.9 L Monocytes % 5.0 Eosinophils % 0.2 Basophils % 0.1 Nucleated Red Blood Cells % 0.0 Immature Granulocytes # 0.060 H Neutrophils # 7.3 Lymphocytes # 0.7 L Monocytes # 0.4 Eosinophils # 0.0 Basophils # 0.0 Nucleated Red Blood Cells # 0.0 Sodium Level 140 Potassium Level 2.9 *L Chloride Level 109 Carbon Dioxide Level 24 Anion Gap 7 Blood Urea Nitrogen 4 L Creatinine 0.45 Est Glomerular Filtrat Rate mL/min > 60 Glucose Level 161 Calcium Level 8.5 Total Bilirubin 0.8 Direct Bilirubin 0.00 Indirect Bilirubin 0.8 Aspartate Amino Transf (AST/SGOT) 39 Alanine Aminotransferase (ALT/SGPT) 58 Alkaline Phosphatase 130 H Total Protein 6.1 Albumin 3.2 L Globulin 2.90 Albumin/Globulin Ratio 1.10 Subjective 24 Hr Interval Summary Free Text/Dictation Low-grade fever this morning SOY drained only 55 mL Potassium 2.9 Exam/Review of Systems Exam Vitals Vital Signs Date Temp Pulse Resp B/P (MAP) Pulse Ox O2 O2 Flow FiO2 Time Delivery Rate 06/29/18 98.7 98 18 132/78 96 07:39 (96) 06/28/18 Room Air 06:30 06/27/18 2.0 23:16 Intake and Output 06/28/18 06/28/18 06/29/18 1515:00 23:00 07:00 IntakeIntake Total 1000 ml 1400 ml 400 ml OutputOutput Total 35 ml 20 ml BalanceBalance 965 ml 1400 ml 380 ml Exam onstitutional: alert, oriented Head: normocephalic Respiratory: clear to auscultation Cardiovascular: regular rate and rhythm Gastrointestinal: soft, nl liver, spleen, non-tender, ascites, bowel sounds, distended, firm, hepatomegaly, mass, rebound or guarding, splenomegaly, surgical scars, tender, other (SOY bulb) Extremities: normal pulses Results Results 24hrs Laboratory Tests Test 06/29/18 04:38 White Blood Count 8.4 # Red Blood Count 3.38 L Hemoglobin 8.9 L Hematocrit 27.6 L Mean Corpuscular Volume 81.7 L Mean Corpuscular Hemoglobin 26.3 L Mean Corpuscular Hemoglobin Concent 32.2 Red Cell Distribution Width 14.6 H Platelet Count 237 Mean Platelet Volume 10.2 Immature Granulocytes % 0.700 H Neutrophils % 86.1 H Lymphocytes % 7.9 L Monocytes % 5.0 Eosinophils % 0.2 Basophils % 0.1 Nucleated Red Blood Cells % 0.0 Immature Granulocytes # 0.060 H Neutrophils # 7.3 Lymphocytes # 0.7 L Monocytes # 0.4 Eosinophils # 0.0 Basophils # 0.0 Nucleated Red Blood Cells # 0.0 Sodium Level 140 Potassium Level 2.9 *L Chloride Level 109 Carbon Dioxide Level 24 Anion Gap 7 Blood Urea Nitrogen 4 L Creatinine 0.45 Est Glomerular Filtrat Rate mL/min > 60 Glucose Level 161 Calcium Level 8.5 Total Bilirubin 0.8 Direct Bilirubin 0.00 Indirect Bilirubin 0.8 Aspartate Amino Transf (AST/SGOT) 39 Alanine Aminotransferase (ALT/SGPT) 58 Alkaline Phosphatase 130 H Total Protein 6.1 Albumin 3.2 L Globulin 2.90 Albumin/Globulin Ratio 1.10 Medications Medication Current Medications Pantoprazole (Protonix Iv) 40 mg DAILY@06 IV Last administered on 06/29/18 05:39; Admin Dose 40 MG; Start 06/26/18 at 07:00 Acetaminophen (Tylenol Tab) 650 mg Q6H PRN PO MILD PAIN(1-3)OR ELEVATED TEMP Last administered on 06/29/18 01:53; Admin Dose 650 MG; Start 06/26/18 at 06:00 Ondansetron HCl (Zofran Inj) 4 mg Q6H PRN IV NAUSEA AND/OR VOMITING Last administered on 06/27/18 23:06; Admin Dose 4 MG; Start 06/26/18 at 06:00 Morphine Sulfate (morphine) 2 mg Q4H PRN IV SEVERE PAIN LEVEL 7-10 Last administered on 06/28/18 16:02; Admin Dose 2 MG; Start 06/26/18 at 06:00 Metronidazole 100 ml @ 100 mls/hr Q8 IVPB Last administered on 06/29/18 06:20; Admin Dose 100 MLS/HR; Start 06/26/18 at 14:30 Potassium Chloride/Dextrose/ Sod Cl 1,000 ml @ 75 mls/hr [id number] IV Last administered on 06/28/18 05:58; Admin Dose 75 MLS/HR; Start 06/27/18 at 14:00 Piperacillin Sod/ Tazobactam Sod 100 ml @ 200 mls/hr Q6 IVPB Last administered on 06/29/18 05:39; Admin Dose 200 MLS/HR; Start 06/27/18 at 14:30 MAYITO ASH MD Jun 29, 2018 11:48
[2018-06-29] MEDS: morphine 2 MG INJ IV PRN (14:13)
[2018-06-29 14:30] VITALS: BP 110/64; PULSE 56; RESP 18
[2018-06-29 19:48] VITALS: BP 119/68; PULSE 83; RESP 18
[2018-06-29] MEDS ORDERED: POTASSIUM CHLORIDE 100 ML IVPB SCH (21:30)
--- NOTE | 2018-06-29 22:34 | PN ---
Date/Time of Note Date/Time of Note DATE: 06/29/18 TIME: 22:32 Assessment/Plan Lines/Catheters IV Catheter Type (from [facility]): Saline Lock [facility] in Place (from [facility]): No Assessment/Plan Chief Complaint/Hosp Course 1. Acute cholecystitis: Ultrasound: gallstones and sludge with thickening of the gallbladder measuring 5 mm: Urine negative. s/p 3 port lapa roscopic cholecystectomy, liver wedge resection, 06/27. Improved overall -Diet as tolerated -Antibiotics -IV fluids -Drain care 2. Abdominal pain improving -Pain management 3. Abnormal LFTs -Trend 4. Leukocytosis improving -As above -Trend 5. Hypochromic anemia anemia: -Monitor and transfuse as needed 6. BMI 31 -diet/exercise optimization Thank you, Subjective 24 Hr Interval Summary Feels better overall. No f/c. No cp/sob. No cough. No sz. No bleeding. No rash, Labs noted. Bowel function. SOY output noted. Exam/Review of Systems Vital Signs Vitals Vital Signs Date Temp Pulse Resp B/P (MAP) Pulse Ox O2 O2 Flow FiO2 Time Delivery Rate 06/29/18 98.8 83 18 119/68 98 19:48 (85) 06/28/18 Room Air 06:30 06/27/18 2.0 23:16 Intake and Output 06/28/18 06/28/18 06/29/18 1515:00 23:00 07:00 IntakeIntake Total 1000 ml 1400 ml 400 ml OutputOutput Total 35 ml 20 ml BalanceBalance 965 ml 1400 ml 380 ml Exam Free Text/Dictation Constitutional: alert, oriented Psych: anxiety Head: normocephalic, atraumatic Eyes: nl conjunctiva, EOMI, nl lids, nl sclera ENMT: nl external ears & nose, nl lips & teeth, mucosa pink and moist Neck: supple, non-tender; No jvd Respiratory: normal air movement; No labored breathing Cardiovascular: regular rate and rhythm, nl pulses; No edema Gastrointestinal: soft, distended (mod), tender, other (Positive Martell's by palpation) Genitourinary - Female: nl external genitalia Musculoskeletal: nl extremities to inspection, nl gait and stance Extremities: normal pulses Neurological: nl mental status, nl speech, nl strength Skin: nl turgor; No rash or lesions Lymph: nl lymph nodes Results Result Diagram: 4/15/19 0438 06/29/18 1632 HEATHER DIAZ MD Jun 29, 2018 22:34
[2018-06-30] MEDS: POTASSIUM CHLORIDE 100 ML IVPB SCH ×2 (00:41→03:27)
[2018-06-30 01:23] VITALS: BP 117/71; PULSE 84; RESP 18
[2018-06-30] MEDS: metroNIDAZOLE 500 MG/NS (PMX) 100 ML IVPB SCH ×2 (05:29→14:14)
[2018-06-30] MEDS: PANTOPRAZOLE 40 MG INJ IV SCH (05:30)
[2018-06-30] MEDS: PIPER-TAZO 3.375 GM IV (PMX) 100 ML IVPB SCH ×2 (06:21→12:20)
[2018-06-30 07:38] VITALS: BP 125/83; PULSE 87; RESP 18
--- NOTE | 2018-06-30 10:47 | PN ---
Date/Time of Note Date/Time of Note DATE: 06/30/18 TIME: 10:44 Assessment/Plan Lines/Catheters IV Catheter Type (from [facility]): Peripheral IV Anderson in Place (from [facility]): No Assessment/Plan Chief Complaint/Hosp Course 1. Acute cholecystitis: Ultrasound: gallstones and sludge with thickening of the gallbladder measuring 5 mm: Urine negative. s/p 3 port la paroscopic cholecystectomy, liver wedge resection, 06/27. Improved overall -Diet as tolerated -Antibiotics: 2 more days of oral. may be discharged per medical team -IV fluids -dc drain today 2. Abdominal pain improving -Pain management 3. Abnormal LFTs -Trend 4. Leukocytosis resolved -As above -Trend 5. Hypochromic anemia anemia: -Monitor and transfuse as needed 6. BMI 31 -diet/exercise optimization Thank you. Patient seen and examined in collaboration with Dr. Gerson Mayo. Subjective 24 Hr Interval Summary Feels well. Tolerating clear liquids. Will advance diet today. No fevers, chills, sob, congested cough, cp, palpitations, horn, dizziness, nausea, vomiting, diarrhea, dysuria. Exam/Review of Systems Vital Signs Vitals Vital Signs Date Temp Pulse Resp B/P (MAP) Pulse Ox O2 O2 Flow FiO2 Time Delivery Rate 06/30/18 98.3 87 18 125/83 97 07:38 (97) 06/28/18 Room Air 06:30 06/27/18 2.0 23:16 Intake and Output 06/29/18 06/29/18 06/30/18 1515:00 23:00 07:00 IntakeIntake Total 400 ml 1300 ml 500 ml OutputOutput Total 15 ml 20 ml BalanceBalance 400 ml 1285 ml 480 ml Exam Free Text/Dictation Constitutional: alert, oriented Psych: Minimal anxiety Head: normocephalic, atraumatic Eyes: nl conjunctiva, EOMI, nl lids, nl sclera ENMT: nl external ears & nose, nl lips & teeth, mucosa pink and moist Neck: supple, non-tender; No jvd Respiratory: normal air movement; No labored breathing Cardiovascular: regular rate and rhythm, nl pulses; No edema Gastrointestinal: soft, distended (minimal); tender zenon-incisional; incision sites dry without drainage/discoloration/bruising; SOY drain: Serous Genitourinary - Female: nl external genitalia Musculoskeletal: nl extremities to inspection, nl gait and stance Extremities: normal pulses Neurological: nl mental status, nl speech, nl strength Skin: nl turgor; No rash or lesions Lymph: nl lymph nodes Results Result Diagram: 06/30/18 0428 06/30/18 0428 TERENCE DOWNS NP Jun 30, 2018 10:47
--- NOTE | 2018-06-30 11:59 | PN ---
Date/Time of Note Date/Time of Note DATE: 06/30/18 TIME: 11:58 Assessment/Plan VTE Prophylaxis Risk score (from Ns)>0 risk: 3 SCD applied (from Ns): Yes Pharmacological prophylaxis: NA/contraindicated Pharm contraindication: low risk/ambulating Lines/Catheters IV Catheter Type (from Nrs): Peripheral IV Urinary Cath still in place: No Assessment/Plan Hospital Course 1. Acute cholecystitis. S/p lap curt by dr Mayo on 06/27/2018. POD 3. Per operative report umbilical/ventral hernia found. 2. Fever secondary to that, spike 99. 3. Hyperbilirubinemia, resolved. Elevated AST and ALT secondary to #1. Improved 4. Leukocytosis secondary to #1, resolved 5. Mild normocytic hypochromic anemia. 6. Obesity 7. Hypokalemia Assessment/Plan -advance diet per surgery - replete K -Ambulate. -pain control -GI prophylaxis Protonix IV. DC home this afternoon if cleared by surgery Result Diagram: 06/30/18 0428 06/30/18 0428 Results 24hrs Laboratory Tests Test 06/29/18 16:32 06/30/18 04:28 Potassium Level 3.3 L 3.2 L White Blood Count 5.0 # Red Blood Count 3.25 L Hemoglobin 8.4 L Hematocrit 26.9 L Mean Corpuscular Volume 82.8 Mean Corpuscular Hemoglobin 25.8 L Mean Corpuscular Hemoglobin Concent 31.2 L Red Cell Distribution Width 14.7 H Platelet Count 281 Mean Platelet Volume 9.9 Immature Granulocytes % 2.800 H Neutrophils % 68.1 Lymphocytes % 17.3 Monocytes % 10.2 Eosinophils % 1.2 Basophils % 0.4 Nucleated Red Blood Cells % 0.0 Immature Granulocytes # 0.140 H Neutrophils # 3.4 Lymphocytes # 0.9 Monocytes # 0.5 Eosinophils # 0.1 Basophils # 0.0 Nucleated Red Blood Cells # 0.0 Sodium Level 138 Chloride Level 108 Carbon Dioxide Level 21 Anion Gap 9 Blood Urea Nitrogen 6 L Creatinine 0.43 L Est Glomerular Filtrat Rate mL/min > 60 Glucose Level 162 Calcium Level 8.5 Subjective 24 Hr Interval Summary Free Text/Dictation feels better today No fevers Exam/Review of Systems Exam Vitals Vital Signs Date Temp Pulse Resp B/P (MAP) Pulse Ox O2 O2 Flow FiO2 Time Delivery Rate 06/30/18 98.3 87 18 125/83 97 07:38 (97) 06/28/18 Room Air 06:30 06/27/18 2.0 23:16 Intake and Output 06/29/18 06/29/18 06/30/18 1414:59 22:59 06:59 IntakeIntake Total 400 ml 1300 ml 400 ml OutputOutput Total 15 ml 20 ml BalanceBalance 400 ml 1285 ml 380 ml Exam xam onstitutional: alert, oriented Head: normocephalic Respiratory: clear to auscultation Cardiovascular: regular rate and rhythm Gastrointestinal: soft, nl liver, spleen, non-tender, ascites, bowel sounds, d istended, firm, hepatomegaly, mass, rebound or guarding, splenomegaly, surgical scars, tender, other (SOY bulb) Extremities: normal pulses Results Results 24hrs Laboratory Tests Test 06/29/18 16:32 06/30/18 04:28 Potassium Level 3.3 L 3.2 L White Blood Count 5.0 # Red Blood Count 3.25 L Hemoglobin 8.4 L Hematocrit 26.9 L Mean Corpuscular Volume 82.8 Mean Corpuscular Hemoglobin 25.8 L Mean Corpuscular Hemoglobin Concent 31.2 L Red Cell Distribution Width 14.7 H Platelet Count 281 Mean Platelet Volume 9.9 Immature Granulocytes % 2.800 H Neutrophils % 68.1 Lymphocytes % 17.3 Monocytes % 10.2 Eosinophils % 1.2 Basophils % 0.4 Nucleated Red Blood Cells % 0.0 Immature Granulocytes # 0.140 H Neutrophils # 3.4 Lymphocytes # 0.9 Monocytes # 0.5 Eosinophils # 0.1 Basophils # 0.0 Nucleated Red Blood Cells # 0.0 Sodium Level 138 Chloride Level 108 Carbon Dioxide Level 21 Anion Gap 9 Blood Urea Nitrogen 6 L Creatinine 0.43 L Est Glomerular Filtrat Rate mL/min > 60 Glucose Level 162 Calcium Level 8.5 Medications Medication Current Medications Pantoprazole (Protonix Iv) 40 mg DAILY@06 IV Last administered on 06/30/18at 05:30; Admin Dose 40 MG; Start 06/26/18 at 07:00 Acetaminophen (Tylenol Tab) 650 mg Q6H PRN PO MILD PAIN(1-3)OR ELEVATED TEMP Last administered on 06/29/18at 01:53; Admin Dose 650 MG; Start 06/26/18 at 06:00 Ondansetron HCl (Zofran Inj) 4 mg Q6H PRN IV NAUSEA AND/OR VOMITING Last administered on 06/27/18at 23:06; Admin Dose 4 MG; Start 06/26/18 at 06:00 Morphine Sulfate (morphine) 2 mg Q4H PRN IV SEVERE PAIN LEVEL 7-10 Last administered on 06/29/18 14:13; Admin Dose 2 MG; Start 06/26/18 at 06:00 Metronidazole 100 ml @ 100 mls/hr Q8 IVPB Last administered on 06/30/18 05:2 9; Admin Dose 100 MLS/HR; Start 06/26/18 at 14:30 Potassium Chloride/Dextrose/ Sod Cl 1,000 ml @ 75 mls/hr [id number] IV Last administered on 06/29/18at 22:21; Admin Dose 75 MLS/HR; Start 06/27/18 at 14:00 Piperacillin Sod/ Tazobactam Sod 100 ml @ 200 mls/hr Q6 IVPB Last administered on 06/30/18 06:21; Admin Dose 200 MLS/HR; Start 06/27/18 at 14:30 MAYITO ASH MD Jun 30, 2018 11:59
--- NOTE | 2018-06-30 12:00 | PDOCDIS ---
Discharge Instructions DIAGNOSIS Discharge Diagnosis lap cholecystectomy CONDITION [id number] Patient Condition: [id number] Fair HOME CARE INSTRUCTIONS: [id number] Diet Instructions: [id number] Modified Fat ACTIVITY: [id number] Activity Restrictions: Eethr1a No Restrictions Slowly Increase Activity Rest between Activity Avoid heavy lifting [id number] Bathing Restrictions: [id number] Shower FOLLOW UP/APPOINTMENTS Follow-up Plan f/u Dr Mayo in 1 week Return to ER if has abdominal pain /fevers/chills MAYITO ASH MD Jun 30, 2018 12:00
[2018-06-30] MEDS ORDERED: CIPR-193 PO (12:02)
[2018-06-30] MEDS ORDERED: DOCU-144 PO (12:02)
[2018-06-30] MEDS ORDERED: HYDR-4011 PO (12:02)
[2018-06-30] MEDS ORDERED: METR500T PO (12:02)
[2018-06-30] MEDS: ACETAMINOPHEN 325 MG TAB PO PRN (12:21)
[2018-06-30 14:07] VITALS: BP 126/77; PULSE 90; RESP 18
--- NOTE | 2018-06-30 20:14 | DS ---
DATE OF ADMISSION: 06/26/2018 DATE OF DISCHARGE: 06/30/2018 HISTORY OF PRESENTING ILLNESS AND HOSPITAL COURSE: This is a 38-year-old female with a past medical history of , presented to [facility] complaining of abdominal pain associated with episodes of nausea or vomiting. The patient went to [facility] for further evaluation. White count was 12.4. Abdominal ultrasound shows gallbladder sludge with thickening of gallbladder measuring 5 m m, suspicious for acute cholecystitis. The patient was started on IV antibiotics and was transferred to [facility] due to insurance reasons. The patient was kept n.p.o., started on IV antibio tics. The patient was seen by Dr. Mayo and went for OR on 06/27/2018. She had acute cholecystitis with significant indication of umbilical ventral hernia. She had laparoscopic cholecystectomy perfo rmed and laparoscopic liver wedge resection. Postop, the patient was in pain, was still having some low-grade fevers. Diet was advanced very slowly. The patient was kept on pain medicines. The patie nt was also continuously repleted with potassium throughout the hospitalization stay. LFTs improved. Currently, the patient's condition got stabilized. The patient is able to tolerate regular diet an d if potassium is stable today, the patient will be discharged and to follow up with Dr. Mayo as a n outpatient. The patient also had a SOY drain in place that will be removed by the nurse re roman today. FINAL DISCHARGE DIAGNOSES: 1. Acute cholecystitis with active inflammation status post laparoscopic cholecystectomy on 06/28/19 19. 2. Umbilical ventral hernia. 3. Sepsis secondary to #1. 4. Hyperbilirubinemia, elevated AST, ALT secondary to #1. 5. Leukocytosis secondary to #1, resolved. 6. Mild normocytic hypochromic anemia. 7. Obesity. 8. Hypokalemia. DISCHARGE CONDITION: Stable. DISCHARGE DIET: Low-fat diet. DISCHARGE MEDICATIONS: 1. [place] 1 cap p.o. q.6 p.r.n. pain. 2. Colace 100 mg p.o. b.i.d. p.r.n. constipation. 3. Cipro 250 mg p.o. b.i.d. for 5 days. 4. Flagyl 500 mg p.o. q.8 days. DISCHARGE INSTRUCTIONS: The patient was instructed to follow up with Dr. Mayo in 1 to 2 weeks. T he patient was instructed to return to the ER if she has severe abdominal pain, nausea, vomiting, fev ers or chills. Dictated By: MAYITO THOMAS/FILOMENA Conf#: [id number] DID#: [id number] CC: GILBERTO MONTGOMERY MD; HEATHER MAYO MD;*End*
== END 2018-06-30 16:10 | disposition home or self-care (01) | DRG 854 ==
LOC: MS1 04:50
PROVIDERS: ADMIT Internal Medicine Nephrology; ATTEND Internal Medicine Nephrology
PROC: 0FB04ZX Excision of Liver, Percutaneous Endoscopic Approach, Diagnostic (ICD-10-PCS; 2018-06-27)
PROC: BF10YZZ Fluoroscopy of Bile Ducts using Other Contrast (ICD-10-PCS; 2018-06-27)
PROC: 0FT44ZZ Resection of Gallbladder, Percutaneous Endoscopic Approach (ICD-10-PCS; principal; 2018-06-27 21:00)
DX: A41.9 Sepsis, unspecified organism (principal); E87.1 Hypo-osmolality and hyponatremia; K80.00 Calculus of gallbladder with acute cholecystitis without obstruction; E87.6 Hypokalemia; E66.3 Overweight; K42.9 Umbilical hernia without obstruction or gangrene; D64.9 Anemia, unspecified; E66.9 Obesity, unspecified; R19.8 Other specified symptoms and signs involving the digestive system and abdomen; Z68.30 Body mass index [BMI] 30.0-30.9, adult
CPT/HCPCS: 71045; 80048; 80053; 82150; 83735; 84100; 84132; 84703; 85025; 85610; 88304; 88307; 88313; 93005; C9113; J0696; J1170; J2001; J2175; J2270; J2405; J2543; J2795; J3010; J3480; J7042